=== PATIENT | male | born 1955 | race Caucasian/White ===

== ENCOUNTER 2016-12-11 08:18 | Day surgery (SDC) | payer BC ==
--- NOTE | ~2016-12-11 | EGD ---
EGD REPORT [facility] [address] [address] NAME: GUNNAR NG : [birth year] STATUS : REG [facility] [place] PAT#: [id number] AGE: 61 ADM/REG DATE : 12/11/16 MR#: [id number] REPORT SERV DATE: 12/11/16 DICTATED BY: KELLIE RIZZO DATE: 12/11/16 REPORT STATUS : Draft TRANSCRIBED BY: [employer] DATE: 12/11/16 [facility] Patient Name: Gunnar Ng Date of : 1955 Attending MD: KELLIE RIZZO MD Procedure Date No Time: 12/11/2016 Procedure: Colonoscopy Indications: Surveillance: Personal history of adenomatous polyps on last colonoscopy 5 years ago Referring MD: ROZ MALCOLM Medicines: Propofol per Anesthesia Complications: No immediate complications. Procedure: Pre-Anesthesia Assessment: - ASA Grade Assessment: II - A patient with mild systemic disease. After I obtained informed consent, the scope was passed under direct vision. Throughout the procedure, the patient's blood pressure, pulse, and oxygen saturations were monitored continuously. The CF [id number] was introduced through the anus and advanced to the terminal ileum. The appendiceal orifice, terminal ileum and rectum were photographed. The colonoscopy was performed without difficulty. The patient tolerated the procedure well. The quality of the bowel preparation was good. Findings: The perianal and digital rectal examinations were normal. The terminal ileum appeared normal. The colon (entire examined portion) appeared normal. Multiple small and large-mouthed diverticula were found in the recto-sigmoid colon, in the sigmoid colon, in the descending colon, in the transverse colon and in the ascending colon. A sessile polyp was found in the sigmoid colon. The polyp was 3 mm in size. The polyp was removed with a cold biopsy forceps. Resection and retrieval were complete. Non-bleeding internal hemorrhoids were found during retroflexion and were mild, small and Grade I (internal hemorrhoids that do not prolapse). Impression: - The examined portion of the ileum was normal. - The entire examined colon is normal. - Diverticulosis in the recto-sigmoid colon, in the sigmoid colon, in the descending colon, in the transverse colon and in the ascending colon. - One 3 mm polyp in the sigmoid colon. Resected and retrieved. EGD REPORT [place] [id number] [facility] [place]. [address] NAME: GUNNAR NG : [birth year] STATUS : REG [facility]#: [id number] AGE: 61 ADM/REG DATE : 12/11/16 MR#: [id number] REPORT SERV DATE: 12/11/16 DICTATED BY: KELLIE RIZZO DATE: 12/11/16 REPORT STATUS : Draft TRANSCRIBED BY: [employer] DATE: 12/11/16 - Non-bleeding internal hemorrhoids. Recommendation: - Patient has a contact number available for emergencies. The signs and symptoms of potential delayed complications were discussed with the patient. Return to normal activities tomorrow. Written discharge instructions were provided to the patient. - Return to previous diet. - Continue present medications. - Await pathology results. - Repeat colonoscopy in 3 - 5 years for surveillance based on pathology results. - Return to my office as previously scheduled. - Discharge patient to home. Procedure Code(s): --- Professional --- 95837, Colonoscopy, flexible, proximal to splenic flexure; with biopsy, single or multiple Diagnosis Code(s): --- Professional --- K64.0, First degree hemorrhoids K57.30, Diverticulosis of large intestine without perforation or abscess without bleeding D12.5, Benign neoplasm of sigmoid colon Z86.010, Personal history of colonic polyps CPT copyright 2013 [employer]. All rights reserved. The codes documented in this report are preliminary and upon furniture upholsterer apprentice review may be revised to meet current compliance requirements. Kellie Rizzo MD KELLIE RIZZO MD 12/11/2016 10:50 AM This report has been signed electronically. Number of Addenda: 0 Note Initiated On: 12/11/2016 10:03 AM Scope Withdrawal Time 0 hours 11 minutes 19 seconds
[~2016-12-11 08:18] MED LIST: CHOLESTEROL MED; FLONASE NAS; PRAV10 PO; ZYRTEC ALLGY10 MG PO
== END 2016-12-11 23:59 | disposition home health service (06) ==
LOC: DMU 08:18
PROVIDERS: Internal Medicine Gastroenterology
PROC: 0DBN8ZX Excision of Sigmoid Colon, Via Natural or Artificial Opening Endoscopic, Diagnostic (ICD-10-PCS; principal; 2016-12-11 09:00)
DX: Z12.11 Encounter for screening for malignant neoplasm of colon (principal); K63.5 Polyp of colon; K57.30 Diverticulosis of large intestine without perforation or abscess without bleeding; K64.0 First degree hemorrhoids; E78.00 Pure hypercholesterolemia, unspecified; Z86.010 Personal history of colon polyps; Z88.5 Allergy status to narcotic agent; Z87.891 Personal history of nicotine dependence; Z98.890 Other specified postprocedural states
CPT/HCPCS: 88305